=== PATIENT | male | born 1950 | race African-American/Black ===

== ENCOUNTER 2016-06-02 03:42 | Emergency (ER) | payer MEDICAID ==
[2016-06-02] MEDS ORDERED: Lidocaine Viscous Sol 2% 15 ml UD Cup ONE (03:53)
[2016-06-02] MEDS ORDERED: Mag-Al Plus 1200 MG/1200 MG/120 MG/30 ML UDCUP ONE (03:53)
[2016-06-02] MEDS ORDERED: Pantoprazole 40 MG VIAL ONE (03:53)
[2016-06-02 04:12] LABS: Hematocrit 29.5 % (42.0-52.0); Red Blood Cell (RBC) Count 2.95 mill/uL (4.70-6.10); White Blood Cell (WBC) Count 5.8 thou/uL (4.8-10.8)
[2016-06-02 04:13] LABS: #Eosinphils 0.1 thou/uL (0.0-0.7); #Monocytes 0.5 thou/uL (0.11-0.59); #Neutrophils 3.2 thou/uL (1.40-6.50); %Basophils 1.1 % (0.0-1.0); %Eosinophils 1.7 % (0.0-10.0); %Monocytes 8.4 % (0.0-10.0); Mean Platelet Volume 4.4 fL (7.4-10.4)
[2016-06-02 04:14] LABS: #Basophils 0.1 thou/uL (0.0-0.2)
[2016-06-02 04:27] LABS: ALT (SGPT) 10 U/L (0-55); AST (SGOT) 18 U/L (5-34); Alkaline Phosphatase 56 U/L (40-150); Anion Gap 13 mmol/L (10-20); BUN (Urea Nitrogen) 12 mg/dL (8.4-25.7); Bilirubin, Total 0.2 mg/dL (0.2-1.2); Calc. Creatinine Clearance 0 mL/min (70-130); Calcium 8.5 mg/dL (7.8-10.44); Carbon Dioxide 23 mmol/L (23-31); Chloride 111 mmol/L (98-107); Estimated GFR-MDRD 69; Globulin 2.8 g/dL (2.4-3.5); Protein, Total 6.5 g/dL (5.8-8.1)
[2016-06-02 04:27] LABS: Troponin I 0.013 ng/mL (< 0.028)
[2016-06-02] MEDS ORDERED: Ondansetron HCl/PF 4 MG/2 ML Vial ONE (05:17)
--- NOTE | 2016-06-02 07:00 | RAD ---
PORTABLE CHEST 06/02/2016 An AP portable film at 0502 hours shows a normal size heart. There is no vascular congestion, edema , or pleural effusion. There is no major lobar infiltrate. The only area in question is some minimal haziness in the right base medially, and this may just be due to overlapping structures. Upright PA and lateral views mi ght be helpful in clearing this. IMPRESSION: Probably no acute findings. See above. POS: HOME
== END 2016-06-02 05:50 | disposition short-term general hospital (02) ==
LOC: BURERS 03:42 → EDSEX 03:42 → BURERS 05:50
DX: R07.9 Chest pain, unspecified (principal); I10 Essential (primary) hypertension; F32.9 Major depressive disorder, single episode, unspecified; F17.210 Nicotine dependence, cigarettes, uncomplicated
CPT/HCPCS: 71010; 80053; 82553; 84484; 85025; 93005; 96374; 96375; C9113; J2270; J2405

== ENCOUNTER 2016-11-05 11:32 | Emergency (ER) | payer MEDICAID ==
[2016-11-05] MEDS ORDERED: Cyclobenzaprine 10 MG TAB ONE (11:53)
[2016-11-05] MEDS ORDERED: Ketorolac Tromethamine 60 MG/2 ML VIAL ONE (11:53)
== END 2016-11-05 12:20 | disposition home or self-care (01) ==
LOC: BURERS 11:32
DX: M54.5 Low back pain (principal); I10 Essential (primary) hypertension; F32.9 Major depressive disorder, single episode, unspecified; F17.210 Nicotine dependence, cigarettes, uncomplicated
CPT/HCPCS: 96372; J1885

== ENCOUNTER 2017-06-01 09:37 | Emergency (ER) | payer MEDICAID, OTHER ==
[2017-06-01] MEDS ORDERED: Lisinopril 5 MG TAB ONE (10:09)
[2017-06-01] MEDS ORDERED: AMOXicillin 250 MG CAP ONE (10:09)
== END 2017-06-01 10:17 | disposition home or self-care (01) ==
LOC: BURERS 09:37
DX: I10 Essential (primary) hypertension (principal); J06.9 Acute upper respiratory infection, unspecified; Z91.14 Patient's other noncompliance with medication regimen; F17.210 Nicotine dependence, cigarettes, uncomplicated
CPT/HCPCS: 99282

== ENCOUNTER 2017-08-04 10:19 | Emergency (ER) | payer OTHER ==
[2017-08-04] MEDS ORDERED: Lisinopril 20 MG TAB ONE (10:46)
[2017-08-04] MEDS ORDERED: Ibuprofen 800 MG TAB ONE (10:46)
== END 2017-08-04 10:53 | disposition home or self-care (01) ==
LOC: BURERS 10:19
DX: I10 Essential (primary) hypertension (principal); R51 Headache; Z91.14 Patient's other noncompliance with medication regimen; F17.210 Nicotine dependence, cigarettes, uncomplicated
CPT/HCPCS: 99283

== ENCOUNTER 2018-08-19 09:23 | Emergency (ER) | payer OTHER | END 2018-08-19 09:40 | disposition home or self-care (01) | LOC: BURERS 09:23 | DX: M10.9 Gout, unspecified (principal); F17.210 Nicotine dependence, cigarettes, uncomplicated; I10 Essential (primary) hypertension | CPT/HCPCS: 99283 ==

== ENCOUNTER 2019-11-10 07:57 | Emergency (ER) | payer MEDICARE, MEDICAID ==
[2019-11-10] MEDS ORDERED: HYDROcodone/Acetaminophen 5/325 mg Tablet ONE (09:45)
[2019-11-10] MEDS ORDERED: Azithromycin 500 MG VIAL ONE (11:36)
[2019-11-10] MEDS ORDERED: cefTRIAXone\\ROCEPHIN 1 GM VIAL ONE (11:36)
[2019-11-10 12:13] LABS: Hemoglobin 14.8 g/dL (14.0-18.0); Mean Corpuscular HGB CONC 31.5 g/dL (32.0-36.0); Mean Corpuscular Hemoglobin 32.1 pg (27.0-31.0); Platelet Count 303 thou/uL (130-400); RBC Distribution Width 12.9 % (11.5-14.5); Red Blood Cell (RBC) Count 4.61 mill/uL (4.70-6.10); White Blood Cell (WBC) Count 5.5 thou/uL (4.8-10.8)
[2019-11-10 12:21] LABS: AST (SGOT) 24 U/L (5-34); Albumin 4.4 g/dL (3.4-4.8); Alkaline Phosphatase 55 U/L (40-110); Anion Gap 17 mmol/L (10-20); BUN (Urea Nitrogen) 12 mg/dL (8.4-25.7); Bilirubin, Total 0.6 mg/dL (0.2-1.2); Calc. Creatinine Clearance 0 mL/min (70-130); Calcium 9.6 mg/dL (7.8-10.44); Carbon Dioxide 22 mmol/L (23-31); Chloride 105 mmol/L (98-107); Estimated GFR-MDRD 78; Globulin 4.1 g/dL (2.4-3.5); Glucose 116 mg/dL (80-115); Potassium 3.8 mmol/L (3.5-5.1); Protein, Total 8.5 g/dL (5.8-8.1); Sodium 140 mmol/L (136-145)
[2019-11-10 12:43] LABS: ALT (SGPT) 18 U/L (8-55)
[2019-11-10 12:47] LABS: Band 4 % (5-11); Eosinophils 1 % (0-10); Lymphocytes 33 % (21-51); MDiff Complete? YES; Macrocytosis SLIGHT = 6-15 cells (100X) (0-5/hpf); Monocytes 6 % (0-10); Neutrophil 54 % (42-75); Platelet Morphology Comment Appears Adequate; Reactive Lymphocytes 2 % (0-10)
--- NOTE | 2019-11-10 19:54 | RAD ---
RIGHT LEG TWO VIEWS: 11/10/19 No gross fracture was seen. There was some clinical question regarding the head of the fibula. While there are some vague irregularities in lines here, none met definite diagnostic criteria for fractur e. If this area continues to hurt, then I would consider follow-up knee films in 7 to 10 days. IMPRESSION: No definite acute finding. POS: HOME
--- NOTE | 2019-11-10 19:55 | RAD ---
RIGHT RIBS WITH PA CHEST: 11/10/19 Comparison is made with an 03/01/17 study. The heart is normal in size. The mediastinum shows no widening or shift. No rib fractures were detect ed, nor was there a sign of pneumothorax. No significant pleural fluid was present. There may be some calcified granulomas in the right upper lobe. IMPRESSION: No acute traumatic findings; however, please see CT report to follow. POS: HOME
--- NOTE | 2019-11-10 19:57 | RAD ---
RIGHT WRIST THREE VIEWS: 11/10/19 No acute fracture was seen. 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 The space between the s caphoid and the fused lunate is 4 mm which is excessive under normal circumstances. Some deformity of the distal ulna could be from old trauma. Minimal irregularity of the distal pole of the scaphoid co uld be old trauma as well. IMPRESSION: 1. No acute bony fractures seen. 2. Probable old trauma to the distal ulna. 3. 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 Code T POS: HOME
--- NOTE | 2019-11-10 20:28 | CT ---
CT OF THE CHEST WITHOUT CONTRAST: 11/10/[address] of the chest was done following trauma. The exam was done without IV contrast. The mediastinum shows no evidence of hematoma or other acute changes within the limitations of a nonc ontrast study. No pericardial effusion of significance was seen. There might be the tiniest amount of fluid present there, at most. No rib fractures, large pleural effusions or signs of pneumothorax wer e present. The ribs and thoracic spine appeared intact. The major finding on this study is an oblong cavitary lesion in the medial right lower lobe measuring about 2.5 cm wide and about 9 cm long. It has an air fluid level in it. Additionally on a few high s lices, there is a suggestion of at least two tiny subcentimeter cavities in the base of the right upp er lobe. A small amount of pleural fluid is suggested on the right, though much of this could be pleu ral thickening. There are some stringy infiltrates around the major cavity. There are also some very stringy minor infiltrates in the left posterior costophrenic angle. Scans into the upper abdomen showed gallstones. Neither adrenal gland seems large. IMPRESSION: 1. No acute traumatic findings. 2. Cavitary lesions in the right lung, predominantly the medial right lower lobe and less so the base of the right upper lobe. Air fluid levels are present in these. 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 Considerations would include tuberculosis, fungal infections, and atypical mycobacte rial infections. Pulmonary workup is needed. 3. Gallstones. Findings discussed with Dr. Godfrey at 10:32 on 11/10/19. POS: HOME
== END 2019-11-10 13:31 | disposition short-term general hospital (02) ==
LOC: BURERS 07:57
DX: J85.2 Abscess of lung without pneumonia (principal); I10 Essential (primary) hypertension; M10.9 Gout, unspecified; F17.210 Nicotine dependence, cigarettes, uncomplicated; F32.9 Major depressive disorder, single episode, unspecified; Z79.899 Other long term (current) drug therapy
CPT/HCPCS: 71250; 80053; 83605; 83880; 84484; 85025; 87040; 96365; 96375; J0456; J0696